=== PATIENT | female | born 1960 | race Caucasian/White ===

== ENCOUNTER → 2021-08-08 | Day surgery (SDC) | payer OTHER ==
[~2021-08-08] VITALS: Ht 152.4 cm; Wt 57.6 kg
[~2021-08-08] MED LIST: CALCIUM + D3 E1 EACH PO; FOSAMAX 70 MG T70 MG PO; LEVO-T75 MCG PO; PROBIOTIC1 EAC7 PO; PROZAC20 M1 PO; VAGIFEM10 MCG VAG
[2021-08-08 09:11] VITALS: BP 97/70
[2021-08-08 11:49] VITALS: BP 97/70
--- NOTE | 2021-08-17 12:31 | O ---
[address] [address] OPERATIVE REPORT Name: MARSHA LOUIS Room #: REG [facility].#: [id number] Admission: 08/08/21 Attend Phys: Mehrdad Dee MD Discharge: Date of : 56 Report #: [id number] THIS REPORT FOR: cc: Tereza Andrade MD, Carrie W. MD McCabe,Mehrdad Phelps MD ~ DATE OF SERVICE: 08/08/2021 SERVICE: Orthopedics. FACILITY: [facility]. SURGEON: Mehrdad Dee MD TAILOR APPRENTICE: Sofia Augustine, nurse practitioner. PREOPERATIVE DIAGNOSES: 1. Right knee pain. 2. Right knee medial meniscus tear. 3. Right knee chondromalacia patella. POSTOPERATIVE DIAGNOSES: 1. Right knee pain. 2. Right knee medial meniscus tear. 3. Right knee chondromalacia patella. PROCEDURES: Right knee arthroscopy with partial medial meniscectomy and patellar chondroplasty. COMPLICATIONS: None. DRAINS: None. SPECIMENS: None. ANESTHESIA: General with regional. FINDINGS: 1. Complex unstable medial meniscus tear, posterior horn flap tear. 2. Intact lateral compartment. 3. Grade 3 chondromalacia in the patellofemoral space and grade 4 lateral patellar chondromalacia/patellar OA. HISTORY: The patient is a 61-year-old female with a history of right knee pain that was determined attributable to an unstable medial meniscus tear. She tried conservative measures including rest, activity modification, therapeutic [address] [place] [address] OPERATIVE REPORT Name: MARSHA LOUIS Room #: REG [facility]#: [id number] Admission: 08/08/21 Attend Phys: Mehrdad Dee MD Discharge: Date of : 56 Report #: [id number] exercise, oral medicines modalities and she continued to have pain. She had known patellofemoral space osteoarthritis, but her symptoms were attributable to the medial meniscus. She indicated that she has significant medial joint line pain and her exam was consistent with this. The MRI showed medial meniscus tear. She was indicated for surgical treatment after failing conservative measures. Risks, benefits, alternatives and indications for surgery discussed with her in detail. Risks include but not limited to pain, bleeding, infection, injuring nerves or blood vessels, persistent pain despite surgical intervention, failure of any repairs, progression of any preexisting chondral injury, stiffness, need for further surgery as well as complications related to anesthesia. Despite the risks, she wished to proceed. PROCEDURE IN DETAIL: After right lower extremity was correctly identified in the preoperative holding area as the operative extremity, the patient was taken to the operating room. General anesthesia was induced without complication with LMA. She was padded appropriately. Prophylactic antibiotics were administered at appropriate time. Tourniquet was applied to right leg. Right lower extremity was then prepped and draped in standard sterile fashion. Timeout procedure was performed. The Esmarch was used, tourniquet inflated to 250 mmHg. Standard anterolateral viewing portal was established followed by anteromedial working portal. Diagnostic arthroscopy revealed the above findings. A shaver was used to perform a limited synovectomy. Probe was used to assess the medial meniscus, which demonstrated a complex flap tear of the posterior horn that was unstable and displaceable into the joint. This was resected with a biter and a shaver to a stable perimeter cartilage and the medial compartment had some chondromalacia, but was overall intact. Cruciates were intact. Leg was placed in a [id number] position, the lateral compartment was evaluated. Limited debridement and synovectomy was completed in the lateral compartment and then leg was placed into extension. The patellofemoral joint was assessed again. The shaver was then used to perform the chondroplasty of patella. She has lateral patellar tracking with grade 4 changes of the lateral patellar facet and has a grade 2-3 chondromalacia of the medial patella. The chondroplasty was completed. The arthroscopic effusion was drained. The meniscal debris was lavaged out the knee. The arthroscopic effusion was drained. Instruments were removed. Portal sites were closed. Sterile dressing was applied after local anesthetic was injected around the portal sites. A compression stocking was applied. The patient was awakened from anesthesia and taken to recovery room in stable condition. No complications. All counts were recorded as correct. <ELECTRONICALLY SIGNED> By: Mehrdad Dee MD 08/17/21 1231 02 35 Mehrdad Dee MD /nt
== END | disposition home or self-care (01) ==
LOC: OR 07:38
PROVIDERS: ATTEND Orthopaedic Surgery Sports Medicine
DX: M25.561 Pain in right knee (principal); S83.241A Other tear of medial meniscus, current injury, right knee, initial encounter; M22.41 Chondromalacia patellae, right knee; E03.9 Hypothyroidism, unspecified; M81.0 Age-related osteoporosis without current pathological fracture; F32.9 Major depressive disorder, single episode, unspecified; Z98.890 Other specified postprocedural states; Z79.899 Other long term (current) drug therapy; Z96.642 Presence of left artificial hip joint; Z90.710 Acquired absence of both cervix and uterus; Z20.822 Contact with and (suspected) exposure to COVID-19; X58.XXXA Exposure to other specified factors, initial encounter; Y93.89 Activity, other specified; Y92.89 Other specified places as the place of occurrence of the external cause; Y99.8 Other external cause status
CPT/HCPCS: 50010; 50101; 50405; 52313; 56527; 57103; 57179; 58589; 58680; 62110; 62900; 70005